=== PATIENT | female | born 1990 | race American Indian/Alaskan Native ===

== ENCOUNTER 2017-06-06 20:23 | Emergency (ER) | payer BC ==
[2017-06-06 21:51] LABS: Basophils % (Auto) 0.7 % (0.0-1.8); Eosinophils % (Auto) 0.3 % (0.0-4.3); Hematocrit 38.9 % (30.3-42.9); Hemoglobin 12.6 gm/dl (10.1-14.3); Mean Corpuscular HGB Conc 33 % (30-34); Mean Corpuscular Volume 80 fl (79-97); Platelet Count 355 K/mm3 (140-440); Red Blood Count 4.88 M/mm3 (3.65-5.03); Red Cell Distribution Width 16.1 % (13.2-15.2); White Blood Count 11.5 K/mm3 (4.5-11.0)
[2017-06-06 22:06] LABS: Alanine Aminotransferase 14 units/L (7-56); Albumin 4.3 g/dL (3.9-5); Albumin/Globulin Ratio 1.4 %; Alkaline Phosphatase 96 units/L (35-129); Anion Gap 19 mmol/L; BUN/Creatinine Ratio 12; Blood Urea Nitrogen 11 mg/dL (7-17); Calcium 9.2 mg/dL (8.4-10.2); Carbon Dioxide 21 mmol/L (22-30); Chloride 102.6 mmol/L (98-107); Glucose 106 mg/dL (65-100); Lipase 20 units/L (13-60); Potassium 3.8 mmol/L (3.6-5.0); Sodium 139 mmol/L (137-145); Total Protein 7.3 g/dL (6.3-8.2)
[2017-06-06 22:23] LABS: Mean Corpuscular Hemoglobin 26 pg (28-32)
[2017-06-06 23:57] LABS: Bilirubin,Urine NEG (Negative); Blood,Urine MOD (Negative); Ketones,Urine TR mg/dL (Negative); Leukocyte Esterase,Urine TR (Negative); Mucus,Urine 2+ /HPF; Nitrite,Urine NEG (Negative); Protein,Urine <15 mg/dL mg/dL (Negative); Urobilinogen,Urine < 2.0 mg/dL (<2.0)
[2017-06-07 04:36] VITALS: BP 136/66
[2017-06-07] MEDS ORDERED: ZOFRAN IV ONE (07:52)
[2017-06-07] MEDS ORDERED: MORPHINE IV ONE (07:52)
[2017-06-07] MEDS ORDERED: NACL 0.9% 1000 ML 1,000 ML IV ONE (07:52)
--- NOTE | 2017-06-07 08:02 | Emergency Department Report ---
HPI - General Chief Complaint: Abdominal Pain Time Seen by Provider: 06/07/17 07:38 - HPI HPI: This is a 27-year-old female presents to the emergency department from home, dropped off by her , with complaint of some mid to lower right abdominal pain, nausea and vomiting that started yesterday. The third time that she vomited she noticed some blood in the emesis. She vomited all the way up until reaching the hospital. She has not taken anything for her symptoms prior to presentation. No recent travel or sick contacts at home. She denies any past medical history. She follows up with a primary care physician in [place]. ED Past Medical Hx - Past Medical History Previous Medical History?: No Additional medical history: Vaginal delivery X 2 - Surgical History Past Surgical History?: Yes Additional Surgical History: Back Surgery - Lower Back - Social History Smoking Status: Never Smoker Substance Use Type: None - Medications Home Medications: Home Medications Medication Instructions Recorded Confirmed Last Taken Type Hyoscyamine Subl [Levsin Sl] 0.125 mg PO Q6H PRN #12 tablet 03/14/13 Unknown Rx Promethazine [Phenergan] 25 mg PO Q6H PRN #12 tablet 03/14/13 Unknown Rx Cyclobenzaprine [Flexeril] 10 mg PO TID PRN #14 tablet 01/04/16 Unknown Rx traMADol [Ultram] 50 mg PO Q6HR PRN #14 tablet 01/04/16 Unknown Rx Ciprofloxacin HCl [Ciprofloxacin 500 mg PO Q12HR #14 tab 06/07/17 Unknown Rx TAB] HYDROcodone/APAP 5-325 [[place] 1 each PO Q6HR PRN #12 tablet 06/07/17 Unknown Rx 5/325] Ondansetron [Zofran Odt] 4 mg PO Q8H PRN #10 tab.rapdis 06/07/17 Unknown Rx ED Review of Systems ROS: Stated complaint: BACK PAIN,VOMITING WITH BLOOD Other details as noted in HPI Comment: All other systems reviewed and negative Constitutional: denies: chills, fever Eyes: denies: eye pain, eye discharge, vision change ENT: denies: ear pain, throat pain Respiratory: denies: cough, shortness of breath, wheezing Cardiovascular: denies: chest pain, palpitations Gastrointestinal: abdominal pain, nausea, vomiting Genitourinary: denies: urgency, dysuria, discharge Musculoskeletal: denies: back pain, joint swelling, arthralgia Skin: denies: rash, lesions Neurological: denies: headache, weakness, paresthesias Physical Exam - Physical Exam Vital Signs: Vital Signs 06/06/17 06/06/17 06/07/17 20:44 21:22 01:05 Temperature 98.3 F 98.3 F 98.1 F Pulse Rate 76 76 68 Respiratory 18 17 18 Rate Blood Pressure 129/82 129/82 114/74 O2 Sat by Pulse 99 99 100 Oximetry 06/07/17 04:35 Temperature 98.4 F Pulse Rate 75 Respiratory 18 Rate Blood Pressure 136/66 O2 Sat by Pulse Oximetry Physical Exam: GENERAL: The patient is well-developed well-nourished. HENT: Normocephalic. Atraumatic. Patient has moist mucous membranes. EYES: Extraocular motions are intact. Pupils equal reactive to light bilaterally. NECK: Supple. Trachea is midline. CHEST/LUNGS: Clear to auscultation. There is no respiratory distress noted. HEART/CARDIOVASCULAR: Regular. There is no tachycardia. There is no gallop rub or murmur. ABDOMEN: Abdomen is soft. There is some right-sided tenderness to palpation of the abdomen. No guarding or rebound tenderness. No peritoneal signs. Patient has normal bowel sounds. There is no abdominal distention. SKIN: Skin is warm and dry. NEURO: The patient is awake, alert, and oriented. The patient is cooperative. The patient has no focal neurologic deficits. The patient has normal speech. MUSCULOSKELETAL: There is no tenderness or deformity. There is no evidence of acute injury. ED Course Vital Signs 06/06/17 06/06/17 06/07/17 20:44 21:22 01:05 Temperature 98.3 F 98.3 F 98.1 F Pulse Rate 76 76 68 Respiratory 18 17 18 Rate Blood Pressure 129/82 129/82 114/74 O2 Sat by Pulse 99 99 100 Oximetry 06/07/17 04:35 Temperature 98.4 F Pulse Rate 75 Respiratory 18 Rate Blood Pressure 136/66 O2 Sat by Pulse Oximetry - Consultations Consultation #1: I discussed the case with a urologist, Dr. Bradley, who is aware of the 8.[address] reading of obstructive uropathy. Based on this, the labs and vitals, and the patient's physical examination, he did not feel that the patient requires admission or any immediate surgical intervention at this time. He recommends antibiotics, pain medication and is willing to see the patient in the office in the next few days. 06/07/17 11:38 ED Medical Decision Making - Lab Data Result diagrams: 06/06/17 21:32 06/06/17 21:32 - Radiology Data Radiology results: report reviewed, image reviewed interpreted by me: X-ray of the abdomen shows some nonspecific nonobstructive bowel gas. CT of the abdomen and pelvis with IV contrast. History: Abdominal pain. Findings: The liver, spleen, pancreas, and gallbladder are normal. The left kidney is normal except for a 1 cm cyst in the midpole. There is an 8.7 mm in diameter stone at the right UV junction with severe right hydroureter and right hydronephrosis. A second smaller stone is seen several centimeters proximal to the large renal stone measuring 3 mm in diameter. There appear to be multiple additional stones in the collecting system of the right kidney partially obscured by intravenous contrast. There are no additional significant findings are seen within the pelvis. Impression: 2 stones are seen in the distal right ureter, the largest of which measures 8.7 mm in diameter with a smaller stone just proximal to this. There is severe obstructive uropathy. Multiple additional intrarenal stones on the right are partially obscured by intravenous contrast. 2. Small left renal cyst. Transcribed By: MRP Dictated By: PEDRO CHANDRA MD Electronically Authenticated By: PEDRO CHANDRA MD Signed Date/Time: 06/07/17 1053 - Medical Decision Making 27-year-old female presents with some right-sided abdominal discomfort and some nausea and vomiting. She has not had any vomiting since being in the emergency department and the nausea was treated with some Zofran. She was given some pain medication with some relief of her discomfort. Vital signs stable including being afebrile. Labs were mostly unremarkable. Patient is not . A CT of the abdomen and pelvis was done that shows a 8.7 mm stone in the distal right ureter with some right-sided obstructive uropathy. Urology was contacted and feels that the patient is safe for discharge home to follow up with them in their office and recommends antibiotics and pain control medication. The patient was given her lab and imaging results, the discussion with the urologist and the plan for discharge home with prescriptions and a strainer for her urine. She understands that she will need to return to the emergency department if she develops any fever, has increased abdominal pain, increased vomiting or with any acute distress. - Differential Diagnosis diverticulitis, nephrolithiasis, hydronephrosis, , fibroids, appen Critical Care Time: No Critical care attestation.: If time is entered above; I have spent that time in minutes in the direct care of this critically ill patient, excluding procedure time. ED Disposition Clinical Impression: Nephrolithiasis, Obstructive uropathy Abdominal pain Qualifiers: Abdominal location: unspecified location Qualified Code(s): R10.9 - Unspecified abdominal pain Nausea & vomiting Qualifiers: Vomiting type: unspecified Vomiting Intractability: non-intractable Qualified Code(s): R11.2 - Nausea with vomiting, unspecified Disposition: TO HOME OR SELFCARE Is pt being admited?: No Condition: Stable Instructions: Kidney Stones (ED), How to Strain Your Urine (ED), Abdominal Pain (ED) Additional Instructions: I have given him a referral for a local urologist, Dr. Bradley, to follow up regarding your kidney stones. You can see any urologist you would like or that takes her insurance. Strain your urine to see if you passed the stones. Return to the emergency department with any inability to urinate, increased abdominal pain, increased vomiting, development of fever, or any acute distress. You have been prescribed a medication that is sedating and therefore should not be taken prior to driving, working, and responsible for children and in no way should be mixed with alcohol of any quantity. Prescriptions: Ciprofloxacin HCl [Ciprofloxacin TAB] 500 mg PO Q12HR #14 tab HYDROcodone/APAP 5-325 [[place] 5/325] 1 each PO Q6HR PRN #12 tablet PRN Reason: Pain Ondansetron [Zofran Odt] 4 mg PO Q8H PRN #10 tab.rapdis PRN Reason: Nausea Referrals: LUCAS BRADLEY MD [Staff Physician] - [facility] Forms: Work/School Release Form(ED) Time of Disposition: 11:32
--- NOTE | 2017-06-07 09:41 | XRay Report ---
ABDOMEN TWO VIEWS: 06/07/17 07:52:00 CLINICAL: Abdominal pain. COMPARISON:05/17/15 FINDINGS: Supine upright views demonstrate a normal bowel gas pattern. Minimal distended bowel and no air-fluid levels. An oval smooth 1 cm+ right pelvic calcification is suspicious for a distal ureteral calculus. It was more proximal at the level of L4 on the previous exam. No pneumoperitoneum. IMPRESSION: Possible large right distal ureteral calculus. The abdomen is otherwise negative. Recommend CT abdomen and pelvis with stone protocol if clinically indicated.
[2017-06-07] MEDS ORDERED: MORPHINE ONE (10:10)
[2017-06-07] MEDS ORDERED: ZOFRAN ONE (10:11)
--- NOTE | 2017-06-07 11:09 | Cat Scan Report ---
CT of the abdomen and pelvis with IV contrast. History: Abdominal pain. Findings: The liver, spleen, pancreas, and gallbladder are normal. The left kidney is normal except for a 1 cm cyst in the midpole. There is an 8.7 mm in diameter stone at the right UV junction with severe right hydroureter and right hydronephrosis. A second smaller stone is seen several centimeters proximal to the large renal stone measuring 3 mm in diameter. There appear to be multiple additional stones in the collecting system of the right kidney partially obscured by intravenous contrast. There are no additional significant findings are seen within the pelvis. Impression: 2 stones are seen in the distal right ureter, the largest of which measures 8.7 mm in diameter with a smaller stone just proximal to this. There is severe obstructive uropathy. Multiple additional intrarenal stones on the right are partially obscured by intravenous contrast. 2. Small left renal cyst.
== END 2017-06-07 12:00 | disposition home or self-care (01) ==
LOC: ED 20:23
DX: N13.9 Obstructive and reflux uropathy, unspecified (principal); N20.0 Calculus of kidney; R11.2 Nausea with vomiting, unspecified
CPT/HCPCS: 36415; 74020; 74177; 80053; 81001; 81025; 83690; 85025; 96361; 96374; 96375; 99284; J2270; J2405; J7030; Q9967

== ENCOUNTER 2017-06-16 14:07 | Day surgery (SDC) | payer BC ==
[~2017-06-16 14:07] MED LIST: ANCEF/STERILE WATER 2 GM/20 ML 2 GM/20 ML SYRINGE IV NR
[2017-06-16] MEDS ORDERED: NACL BACTERIOSTATIC INFILTRATI ONE (14:57)
--- NOTE | 2017-06-16 15:24 | Anesthesia Consultation ---
Anesthesia Consult and Med Hx Date of service: 06/16/17 - Airway Anesthetic Teeth Evaluation: Good ROM Head & Neck: Adequate Mental/Hyoid Distance: Adequate Mallampati Class: Class II Intubation Access Assessment: Good - Pulmonary Exam CTA: Yes - Cardiac Exam Cardiac Exam: No Murmur - Pre-Operative Health Status ASA Pre-Surgery Classification: ASA1 - Pulmonary Hx Smoking: No Hx Sleep Apnea: No (KERVIN PRE SCREEN NEGATIVE) - Cardiovascular System Hx Hypertension: No - Central Nervous System Hx Back Pain: Yes (FROM KIDNEY STONE) - Other Systems Hx Cancer: No
--- NOTE | 2017-06-16 15:25 | Anesthesia Day of Surgery ---
Anesthesia Day of Surgery - Day of Surgery Patient Examined: Yes Patient H&P Reviewed: Yes Patient is NPO: No (ate at 11AM)
[2017-06-16] MEDS ORDERED: PEPCID PO NR (16:00)
[2017-06-16] MEDS ORDERED: LACTATED RINGERS 1,000 ML IV SCH (16:00)
[2017-06-16] MEDS ORDERED: VERSED IV NR (16:00)
[2017-06-16] MEDS ORDERED: ANCEF/STERILE WATER 2 GM/20 ML 2 GM/20 ML SYRINGE IV ONE (16:04)
[2017-06-16] MEDS ORDERED: ZOFRAN ONE (17:06)
[2017-06-16] MEDS ORDERED: DIPRIVAN 10 MG/ML IV ONE (17:06)
[2017-06-16] MEDS ORDERED: SUBLIMAZE ONE (17:06)
[2017-06-16] MEDS ORDERED: DECADRON ONE (17:06)
[2017-06-16] MEDS ORDERED: XYLOCAINE MPF 2% ONE (17:06)
--- NOTE | 2017-06-16 17:19 | Post Operative Note ---
Pre-op diagnosis: huge r distal stone Post-op diagnosis: same Findings: as above Procedure: cysto rpg stent ureteroscopy laser stent Anesthesia: GETA Surgeon: MATI ADAMS Estimated blood loss: none Pathology: none Condition: stable Disposition: PACU
--- NOTE | 2017-06-16 17:21 | Discharge Summary ---
Short Stay Discharge Plan Activity: other (no straining ) Weight Bearing Status: Full Weight Bearing Diet: low fat Special Instructions: other (inc fluids ) Durable Medical Equipment Needed Upon Discharge: other (j stent ) Follow up with: PRIMARY CAREMD [Primary Care Provider] - 7 Days MATI ADAMS MD [Staff Physician] - 10 Days
[2017-06-16] MEDS ORDERED: OMNIPAQUE 300 MG/50 ML (CATH LAB) IV ONE (18:29)
[2017-06-16] MEDS ORDERED: WATER FOR IRRIG STERILE IR ONE ×2 (18:30)
[2017-06-16] MEDS ORDERED: LASIX ONE (18:51)
--- NOTE | 2017-06-16 19:29 | Operative Report ---
PREOPERATIVE DIAGNOSIS: Huge right distal stone. POSTOPERATIVE DIAGNOSES: Huge right distal stone with severe right hydronephrosis. PROCEDURE: Cystoscopy, right retrograde, right ureteral balloon dilatation, ureteroscopy with laser of stone, extraction of fragments, double-J stent. SURGEON: Steffen Vázquez MD ANESTHESIA: General. FINDINGS: This is a woman who had pain has a huge distal stone. She knows that this will be a staged procedure because the stone was so big in the distal ureter. DESCRIPTION OF PROCEDURE: The patient was brought to the operating room and placed on the operating table. Following induction of anesthesia, placed in lithotomy position, prepped and draped in usual sterile fashion. Cystourethroscopy showed some blood at the right orifice. Retrograde showed a 1 cm stone in the distal ureter. A wire eventually with some difficulty coiled in the kidney. There was no evidence of any pyonephrosis. There was no purulent material. It was all clear. Balloon dilatation was carried out and an ureteroscopy showed this huge stone. We broke it up. There was lots of edema around the ureter we broken up into lots of pieces and 2 pieces were given to the family. At this point, there was still some significant fragment adherent to the wall. We left a 7-Slovenian double J. We will come back in staged procedures to get the rest in approximately 3 weeks. The patient tolerated the procedure well and brought to recovery room in stable condition. JOB# [id number] MATTHIEU/KOBY
[2017-06-16] MEDS ORDERED: DILAUDID IV PRN ×2 (19:30→19:33)
[2017-06-16 20:10] VITALS: BP 110/59
--- NOTE | 2017-06-17 07:34 | Fluoroscopy Report ---
FLUOROSCOPY RETROGRADE UROGRAPHY HISTORY: RIGHT URETERAL STONE. FINDINGS: Fluoroscopy was provided by radiology during retrograde urography by Dr. Vázquez of urology. 6 fluoroscopic images were captured. The images demonstrate a filling defect in the distal right ureter consistent with an obstructing stone. Subsequent images demonstrate balloon dilatation of the right ureter and placement of a right ureteral stent which adequately drains the collecting system on the final image. Please correlate with the procedural report by Dr. Vázquez. IMPRESSION: Right ureteral stone. Right ureteral stent placement by urology.
== END 2017-06-16 14:08 | disposition home or self-care (01) ==
LOC: OR 14:07
PROVIDERS: ATTEND Urology
DX: N13.2 Hydronephrosis with renal and ureteral calculous obstruction (principal)
CPT/HCPCS: 52344; 52356; 74420; 81025; A4217; C1726; C1758; C1769; C2617; J0690; J1100; J1170; J1940; J2250; J2405; J2704; J3010; J7120; Q9967

== ENCOUNTER 2017-07-28 15:07 | Day surgery (SDC) | payer BC ==
[2017-07-28] MEDS ORDERED: NACL BACTERIOSTATIC INFILTRATI ONE (15:48)
[2017-07-28] MEDS ORDERED: LACTATED RINGERS 1,000 ML IV SCH (16:07)
[2017-07-28] MEDS ORDERED: PEPCID IV NR (16:07)
[2017-07-28] MEDS ORDERED: VERSED IV NR (16:07)
--- NOTE | 2017-07-28 16:08 | Anesthesia Consultation ---
Anesthesia Consult and Med Hx Date of service: 07/28/17 - Airway Anesthetic Teeth Evaluation: Good ROM Head & Neck: Adequate Mental/Hyoid Distance: Adequate Mallampati Class: Class II Intubation Access Assessment: Good - Pulmonary Exam CTA: Yes - Cardiac Exam Cardiac Exam: No Murmur - Pre-Operative Health Status ASA Pre-Surgery Classification: ASA2 Proposed Anesthetic Plan: General - Pulmonary Hx Smoking: No Hx Sleep Apnea: No (KERVIN PRE SCREEN NEGATIVE) - Cardiovascular System Hx Hypertension: No - Central Nervous System Hx Back Pain: Yes (FROM KIDNEY STONE) - Other Systems Hx Cancer: No
--- NOTE | 2017-07-28 16:09 | Anesthesia Day of Surgery ---
Anesthesia Day of Surgery - Day of Surgery Patient Examined: Yes Patient H&P Reviewed: Yes Patient is NPO: Yes
[2017-07-28] MEDS ORDERED: SUBLIMAZE ONE (16:55)
[2017-07-28] MEDS ORDERED: DIPRIVAN 10 MG/ML IV ONE (16:56)
[2017-07-28] MEDS ORDERED: ANCEF/STERILE WATER 2 GM/20 ML 2 GM/20 ML SYRINGE IV NR (17:00)
[2017-07-28] MEDS ORDERED: OMNIPAQUE 300 MG/50 ML (CATH LAB) IV ONE (17:37)
[2017-07-28] MEDS ORDERED: WATER FOR IRRIG STERILE IR ONE ×2 (17:38)
[2017-07-28] MEDS ORDERED: DILAUDID IM ONE (18:00)
[2017-07-28] MEDS ORDERED: XYLOCAINE MPF 2% ONE (18:18)
--- NOTE | 2017-07-28 18:29 | Post Operative Note ---
Date of procedure: 07/28/17 Pre-op diagnosis: huge r ureteral stone Post-op diagnosis: same Findings: as above Procedure: cysto l;aser urteteroscopy stent Anesthesia: GETA Surgeon: MATI ADAMS Estimated blood loss: minimal Pathology: list (stones) Specimen disposition: given to patient/family Condition: stable Disposition: PACU
--- NOTE | 2017-07-28 18:30 | Discharge Summary ---
Short Stay Discharge Plan Activity: other (no straining ) Weight Bearing Status: Full Weight Bearing Diet: regular Special Instructions: other (inc fluids ) Durable Medical Equipment Needed Upon Discharge: other (j stent ) Follow up with: PEDRO LINO MD [Primary Care Provider] - 7 Days MATI ADAMS MD [Staff Physician] - 7 Days
[2017-07-28] MEDS ORDERED: DECADRON ONE (18:32)
[2017-07-28] MEDS ORDERED: ZOFRAN ONE (18:32)
[2017-07-28] MEDS ORDERED: DILAUDID ONE (18:48)
--- NOTE | 2017-07-28 18:49 | Operative Report ---
PREOPERATIVE DIAGNOSIS: Huge right distal ureteral stone about 1.2 cm. POSTOPERATIVE DIAGNOSES: Huge right distal ureteral stone about 1.2 cm. PROCEDURE: Stage ureteroscopy. SURGEON: Steffen Vázquez MD ANESTHESIA: General. FINDINGS: This is a woman who presented with a huge stone. She was in severe pain. We took about half the stone at the first session, now she presents for followup. DESCRIPTION OF PROCEDURE: The patient brought to the operating room and placed on the operating table. Following induction of anesthesia, placed in lithotomy position, prepped and draped in the usual sterile fashion. The stent was removed under fluoroscopic guidance, after we had a wire up there. It was a little gritty to get by the back, pass the stone. With the wire under fluoroscopy, it came out pretty good and pretty easily. At this point, ureteroscopy showed this huge stone. It was with a laser at 260 fiber, we broke up into about 30 pieces. Many of the pieces were extracted. Many of them was left in the bladder, the small pieces. The patient tolerated the procedure well. A double-J coiled in the kidney and bladder. We were able to get above the stone and continued lasering and removed all the stones that we saw. The patient tolerated the procedure well. She will be given the fragments, brought to recovery in stable condition with a 7-Albanian double-J to be removed in about 2 weeks. JOB# [id number] MATTHIEU/KOBY
[2017-07-28 20:51] VITALS: BP 122/69
--- NOTE | 2017-07-29 07:43 | Fluoroscopy Report ---
FLUORO RETROGRADE UROGRAPHY INDICATION: Right ureteral stone. COMPARISON: 06/16/2017. FINDINGS: 8 fluoroscopic images submitted. Procedure performed by Dr. Vázquez. Initial fence installer radiographs, 6:08 PM, 07/28/2017 demonstrate a right ureteral stent and approximately 1 cm right distal ureteral calculus. Right stone extraction and retrograde pyelogram performed with right ureteroscopy and right ureteral stent exchange. Mild right hydronephrosis again not excluded with small amount of contrast visible in the pelvis/urinary bladder. CONCLUSION: Intraoperative fluoroscopic assistance provided for right ureteral stone extraction, RPG, stent exchange and ureteroscopy, as described. Thank you for the opportunity to participate in this patient's care.
== END 2017-07-28 15:08 | disposition home or self-care (01) ==
LOC: OR 15:07
PROVIDERS: ATTEND Urology
DX: N20.1 Calculus of ureter (principal)
CPT/HCPCS: 52356; 74420; 81025; A4217; C1758; C1769; C2617; J0690; J1100; J1170; J2250; J2405; J2704; J3010; J7120; Q9967

== ENCOUNTER 2017-11-17 08:22 | Day surgery (SDC) | payer BC ==
[2017-11-17] MEDS ORDERED: XYLOCAINE MPF 2% ONE (09:18)
[2017-11-17] MEDS ORDERED: SUBLIMAZE ONE (09:19)
[2017-11-17] MEDS ORDERED: DIPRIVAN 10 MG/ML IV ONE (09:20)
[2017-11-17] MEDS ORDERED: DILAUDID IV PRN (10:00)
[2017-11-17] MEDS ORDERED: NACL BACTERIOSTATIC INFILTRATI ONE (10:00)
[2017-11-17] MEDS ORDERED: NACL 0.9% 1000 ML 1,000 ML IV SCH (10:00)
[2017-11-17] MEDS ORDERED: TORADOL IV PRN (10:00)
--- NOTE | 2017-11-17 10:02 | Anesthesia Day of Surgery ---
Anesthesia Day of Surgery - Day of Surgery Patient Examined: Yes Patient H&P Reviewed: Yes Patient is NPO: Yes Beta Blockers: No Cardiac Clearance: No Pulmonary Clearance: No
--- NOTE | 2017-11-17 10:02 | Anesthesia Consultation ---
Anesthesia Consult and Med Hx Date of service: 11/24/17 - Airway Anesthetic Teeth Evaluation: Good ROM Head & Neck: Adequate Mental/Hyoid Distance: Adequate Mallampati Class: Class II Intubation Access Assessment: Probably Good - Pulmonary Exam CTA: Yes - Cardiac Exam Cardiac Exam: RRR - Pre-Operative Health Status ASA Pre-Surgery Classification: ASA2 Proposed Anesthetic Plan: General - Pre-Anesthesia Comment Pre-Anesthesia Comments: RENAL CALCULI - Pulmonary Hx Smoking: No Hx Sleep Apnea: No (KERVIN PRE SCREEN NEGATIVE) - Cardiovascular System Hx Hypertension: No - Central Nervous System Hx Back Pain: Yes (FROM KIDNEY STONE) - Other Systems Hx Cancer: No
--- NOTE | 2017-11-17 10:05 | Anesthesia Day of Surgery ---
Anesthesia Day of Surgery - Day of Surgery Patient Examined: Yes Patient H&P Reviewed: Yes Patient is NPO: Yes Beta Blockers: No Cardiac Clearance: No Pulmonary Clearance: No
[2017-11-17] MEDS ORDERED: ANCEF/STERILE WATER 2 GM/20 ML IV NR (10:30)
[2017-11-17] MEDS ORDERED: WATER FOR IRRIG STERILE IR ONE (11:30)
[2017-11-17] MEDS ORDERED: ZOFRAN ONE (11:43)
--- NOTE | 2017-11-17 11:47 | Short Stay Summary ---
Short Stay Documentation Date of service: 11/17/17 Narrative H&P: 27 yr old female with rt kidney stone - History Past Medical History: other (kidney stones) Past Surgical History: Other (ureteroscopy in past) - Allergies and Medications Current Medications: Allergies No Known Allergies Allergy (Verified 06/14/17 15:38) Home Medications Medication Instructions Recorded Confirmed Last Taken Type Cholecalciferol (Vitamin D3) 1,000 unit PO DAILY 06/14/17 11/17/17 11/14/17 History [Vitamin D3] Active Medications Cefazolin Sodium (Ancef/Sterile Water 2 Gm/20 Ml) 2 gm IV PREOP NR Stop: 11/17/17 15:00 Hydromorphone HCl (Dilaudid) 0.5 mg IV Q10MIN PRN PRN Reason: Pain , Severe (7-10) Stop: 11/17/17 15:00 Sodium Chloride (Nacl 0.9% 1000 Ml) 1,000 mls @ 75 mls/hr IV DIRECT NAILA Last Admin: 11/17/17 10:20 Dose: 75 mls/hr Ketorolac Tromethamine (Toradol) 15 mg IV ONCE PRN PRN Reason: Pain, Mild (1-3) - Physical exam General appearance: no acute distress, well-nourished Integumentary: no rash, no growths Lungs: Clear to auscultation Breasts: deferred Heart: Regular rate, No murmurs Gastrointestinal: normal Female Genitourinary: normal Rectal Exam: deferred Extremities: no ischemia, No edema - Brief post op/procedure progress note Date of procedure: 11/17/17 Pre-op diagnosis: rt kidney stone Post-op diagnosis: same Procedure: cysto, rt ureteroscopy ,stent with external string Anesthesia: MIRIAMA Surgeon: LUCAS BUSCH Estimated blood loss: none Condition: stable - Hospital course Hospital course: cipro, norco, post op info on chart - Disposition Condition at discharge: Stable Disposition: DC-01 TO HOME OR SELFCARE Short Stay Discharge Plan Follow up with: ALEDIA EVANGELISTA DO [Primary Care Provider] - 7 Days
[2017-11-17] MEDS ORDERED: NORCO 5/325 PO PRN (12:12)
--- NOTE | 2017-11-17 12:20 | Operative Report ---
PREOPERATIVE DIAGNOSIS: Right renal stone. POSTOPERATIVE DIAGNOSES: Right renal stone, right hydronephrosis, passed stone. PROCEDURE: Cystoscopy, right retrograde pyelogram, right ureteroscopy, double-J stent placement (6-Solomon Islander 24 cm) with an external string. SURGEON: Pradeep Bradley MD ANESTHESIA: General. ESTIMATED BLOOD LOSS: Minimal. FLUIDS: Crystalloid. COMPLICATIONS: No complications. INDICATIONS: This patient is a 27-year-old female seen by Dr. Vázquez in the office. It was noted to be several stones in the right kidney. She also had a distal stone that was removed. She presents now for intervention. DESCRIPTION OF PROCEDURE: The patient was taken to the operative suite, placed in a supine position. Network Operations Project Manager film to find the stone was unremarkable. IV contrast was given. There was dilation of the collecting system. No obvious stone could be appreciated. I discussed with the patient, who was awake on the table and she agreed to proceed with ureteroscopy. She then underwent general anesthesia, placed in a dorsal lithotomy position, prepped and draped in the sterile fashion. This was all discussed with her and her preop and written information was given. The patient was taken to the operative suite, placed in a supine position. After adequate general anesthesia, placed in a dorsal lithotomy position, prepped and draped in a sterile fashion. Pancystourethroscopy was performed with 22-Solomon Islander Storz cystoscope. No bladder pathology. Right retrograde pyelogram was obtained with an 8-Solomon Islander [place] catheter and 8 mL of contrast. Dilation of the proximal ureter and calices could be appreciated. I could not see an obvious stone. Based on these findings, two 0.035 Glidewires were placed. Rigid ureteroscopy up to the renal pelvis was performed. There was some erythema in the proximal ureter. No obvious stone could be appreciated, suggesting it had passed. A 6-Solomon Islander 24 cm double-J stent with an external string was left indwelling. Bladder was drained. She was extubated and taken to recovery room. She will go home on [place] and Cipro and follow up in the office. JOB# [id number] LINUSC/NTS
[2017-11-17 16:28] VITALS: BP 101/64
--- NOTE | 2017-11-17 17:32 | Post Anesthesia Evaluation ---
- Post Anesthesia Evaluation Patient Participated: Yes Airway Patent: Yes Stable Respiratory Function: Yes Nausea/Vomiting: No Temp > 96.8F: Yes Pain Manageable: Yes Adequeate Hydration: Yes Anesthesia Complications: No
== END 2017-11-17 13:29 | disposition home or self-care (01) ==
LOC: OR 08:22
PROVIDERS: ATTEND Urology
DX: N13.2 Hydronephrosis with renal and ureteral calculous obstruction (principal)
CPT/HCPCS: 52332; 81025; A4217; C1758; C1769; C2617; J0690; J1885; J2405; J2704; J3010; J7030; Q9967

== ENCOUNTER 2019-03-28 09:36 | Emergency (ER) | payer BC ==
--- NOTE | 2019-03-28 09:55 | Emergency Department Report ---
HPI - General Chief Complaint: Abdominal Pain Time Seen by Provider: 03/28/19 09:51 - HPI HPI: 29 COMES TO ER WITH R FLANK PAIN. HX OF KIDNEY STONES. AMBULATORY. NO N/V. PAIN 02/17 ON ARRIVAL. SHE DENIES FEVER/CHILLS/DIARRHEA. OTC MEDS NOT HELPING DURING THE NIGHT SO SHE COMES TO ER. PAIN IS COLICKY ON RIGHT SIDE. ED Past Medical Hx - Past Medical History Previous Medical History?: Yes Hx Hypertension: No Hx Kidney Stones: Yes Hx HIV: No Additional medical history: Vaginal delivery X 2 - Surgical History Past Surgical History?: Yes Additional Surgical History: Back Surgery - Lower Back - Family History Family history: no significant - Social History Smoking Status: Never Smoker Substance Use Type: None - Medications Home Medications: Home Medications Medication Instructions Recorded Confirmed Last Taken Type Cholecalciferol (Vitamin D3) 1,000 unit PO DAILY 06/14/17 11/17/17 11/14/17 History [Vitamin D3] Ciprofloxacin HCl [Ciprofloxacin 500 mg PO Q12HR #20 tab 03/28/19 Unknown Rx TAB] Ondansetron [Zofran Odt] 4 mg PO Q8HR PRN #10 tab.rapdis 03/28/19 Unknown Rx Tamsulosin [Flomax] 0.4 mg PO QDAY #10 cap 03/28/19 Unknown Rx traMADol [Ultram] 50 mg PO Q6HR PRN #12 tablet 03/28/19 Unknown Rx ED Review of Systems ROS: Stated complaint: BODY ACHE/ABD PAIN Other details as noted in HPI Comment: All other systems reviewed and negative Physical Exam - Physical Exam Vital Signs: Vital Signs 03/28/19 09:40 Temperature 98.7 F Pulse Rate 110 H Respiratory 18 Rate Blood Pressure 109/55 Blood Pressure 109/55 [Right] O2 Sat by Pulse 95 Oximetry Physical Exam: ALERT AND ORIENTED S1S2 LUNGS CTA ABD SNT NO EDEMA NO JVD FULL ROM ALL EXTREMITIES ED Course Vital Signs 03/28/19 09:40 Temperature 98.7 F Pulse Rate 110 H Respiratory 18 Rate Blood Pressure 109/55 Blood Pressure 109/55 [Right] O2 Sat by Pulse 95 Oximetry ED Medical Decision Making - Lab Data Result diagrams: 03/28/19 10:23 03/28/19 10:23 - Radiology Data Radiology results: report reviewed, image reviewed - Medical Decision Making Vital Signs 03/28/19 03/28/19 09:40 10:59 Temperature 98.7 F Pulse Rate 110 H Respiratory 18 18 Rate Blood Pressure 109/55 Blood Pressure 109/55 [Right] O2 Sat by Pulse 95 Oximetry Labs 03/28/19 03/28/19 03/28/19 10:10 10:23 10:23 WBC 5.6 RBC 5.05 H Hgb 11.8 Hct 36.7 MCV 73 L MCH 24 L MCHC 32 RDW 18.2 H Plt Count 329 Sodium 137 Potassium 3.8 Chloride 103.2 Carbon Dioxide 22 Anion Gap 16 BUN 12 Creatinine 0.8 Estimated GFR > 60 BUN/Creatinine Ratio 15 Glucose 98 Calcium 8.8 Total Bilirubin 0.20 AST 19 ALT 19 Alkaline Phosphatase 84 Total Protein 7.0 Albumin 4.0 Albumin/Globulin Ratio 1.3 Lipase 20 Urine Color Yellow Urine Turbidity Cloudy Urine pH 6.0 Ur Specific [place] 1.019 Urine Protein 100 mg/dl Urine Glucose (UA) Neg Urine Ketones 20 Urine Blood Lg Urine Nitrite Pos Ur Reducing Substances Not Reportable Urine Bilirubin Neg Urine Ictotest Not Reportable Urine Urobilinogen 2.0 Ur Leukocyte Esterase Sm Urine WBC (Auto) 34.0 H Urine RBC (Auto) > 182.0 U Epithel Cells (Auto) 3.0 Urine Bacteria (Auto) 3+ Urine Mucus 2+ Urine HCG, Qual Negative NS/PAIN MEDICATIONS/ZOFRAN AND ROCEPHIN IN ER UA NOTED LABS NOTED CT NOTED DISCUSSED WITH DR SILVA AND THEN UROLOGY- DR ADAMS WITH [facility] PER [facility] PT CAN BE DC HOME AND FOLLOWED IN THE OFFICE PT UPDATED ON PLAN OF CARE ON DC SHE IS PAIN FREE, NO VOMITING, AMBULATORY HR 90, RR 18, BP 120/82 PER PROVIDER SHE IS VOIDINIG WITHOUT DIFFICULTY Critical care attestation.: If time is entered above; I have spent that time in minutes in the direct care of this critically ill patient, excluding procedure time. ED Disposition Clinical Impression: Kidney stone, UTI (urinary tract infection), Hydronephrosis Disposition: DC-01 TO HOME OR SELFCARE Is pt being admited?: No Does the pt Need Aspirin: No Condition: Stable Instructions: Kidney Stones (ED) Additional Instructions: MEDS ORDERED HYDRATE WELL WITH WATER STRAIN URINE FOLLOW UP WITH URO MAY CALL TODAY AND MAKE APPNT REFERRAL BELOW Prescriptions: Ciprofloxacin HCl [Ciprofloxacin TAB] 500 mg PO Q12HR #20 tab Tamsulosin [Flomax] 0.4 mg PO QDAY #10 cap traMADol [Ultram] 50 mg PO Q6HR PRN #12 tablet PRN Reason: Pain Ondansetron [Zofran Odt] 4 mg PO Q8HR PRN #10 tab.rapdis PRN Reason: Vomiting Referrals: PRIMARY CARE, [Primary Care Provider] - 3-5 Days LUIS ANTONIO GREGORY MD [Staff Physician] - 3-5 Days LUCAS BUSCH MD [Staff Physician] - 3-5 Days JENIFFER BENJAMIN MD [Staff Physician] - 3-5 Days Forms: Work/School Release Form(ED) Time of Disposition: 13:45
[2019-03-28] MEDS ORDERED: IBUPROFEN PO ONE (09:56)
[2019-03-28 10:24] LABS: HCG Qualitative,Urine Negative (Negative)
[2019-03-28 10:31] LABS: Bacteria,Urine 3+ /HPF (Negative); Bilirubin,Urine NEG (Negative); Blood,Urine LG (Negative); Mucus,Urine 2+ /HPF
[2019-03-28 10:34] LABS: Color,Urine Yellow (Yellow); RBC,Urine > 182.0 /HPF (0.0-6.0)
[2019-03-28] MEDS ORDERED: ROCEPHIN/NS 1 GM/50 ML 1 GM/50 ML BAG IV ONE (10:37)
[2019-03-28] MEDS ORDERED: TORADOL IV ONE (10:37)
[2019-03-28] MEDS ORDERED: NACL 0.9% 1000 ML 1,000 ML IV ONE ×2 (10:37→12:28)
[2019-03-28 10:51] LABS: Hematocrit 36.7 % (30.3-42.9); Hemoglobin 11.8 gm/dl (10.1-14.3); Mean Corpuscular HGB Conc 32 % (30-34); Mean Corpuscular Volume 73 fl (79-97); Platelet Count 329 K/mm3 (140-440); Red Blood Count 5.05 M/mm3 (3.65-5.03); Red Cell Distribution Width 18.2 % (13.2-15.2)
[2019-03-28 11:02] LABS: Alanine Aminotransferase 19 units/L (7-56); BUN/Creatinine Ratio 15; Blood Urea Nitrogen 12 mg/dL (7-17); Calcium 8.8 mg/dL (8.4-10.2); Hemolysis Index 34
--- NOTE | 2019-03-28 12:27 | Cat Scan Report ---
CT ABDOMEN AND PELVIS WITHOUT CONTRAST HISTORY: Right flank pain for 12 hours COMPARISON: 06/07/2017 CT abdomen pelvis with contrast TECHNIQUE: Axial CT images were obtained through the abdomen and pelvis without IV contrast. Sagittal and coronal reformatted images. All CT scans at this location are performed using CT dose reduction for ALARA by means of automated exposure control. FINDINGS: CT ABDOMEN: Lung Bases: Clear. Liver: No significant abnormality. Biliary: No significant abnormality. Spleen: No significant abnormality. Unenlarged. Pancreas: No significant abnormality. Adrenals: No significant abnormality. Kidneys: A 10 x 11 x 11 mm ureteral stone is identified in the proximal right ureter. There is modera te right hydronephrosis. No left ureteral stones. Multiple bilateral tiny renal calyceal stones are i dentified, left greater than right. Please note that a large calculus in the distal right ureter has been removed since 2017. Lymphatics: No lymphadenopathy. Vasculature: No significant abnormality. Bowel/Peritoneum: No significant abnormality. No free air. No free fluid. Normal appendix. CT PELVIS: : No significant abnormality. Osseous Structures: No significant abnormality. Additional Findings: None IMPRESSION: 10 x 11 x 11 mm proximal right ureteral stone, obstructing. Bilateral renal calyceal stones, left greater than right. Signer Name: Jakob Cade Jr, MD Signed: 03/28/2019 12:22 PM Workstation Name: [id number]
[2019-03-28 14:02] VITALS: BP 111/72
== END 2019-03-28 14:17 | disposition home or self-care (01) ==
LOC: ED 09:36
DX: N13.2 Hydronephrosis with renal and ureteral calculous obstruction (principal); N39.0 Urinary tract infection, site not specified; Z87.442 Personal history of urinary calculi; Z98.890 Other specified postprocedural states; Z79.899 Other long term (current) drug therapy
CPT/HCPCS: 36415; 74176; 80053; 81001; 81025; 83690; 85027; 87086; 96365; 96375; 99284; J0696; J1885; J7030

== ENCOUNTER 2019-04-05 07:58 | Day surgery (SDC) | payer BC ==
[2019-04-05] MEDS ORDERED: fentaNYL 100 MCG/2 ML INJ IV NR (08:47)
--- NOTE | 2019-04-05 08:48 | Anesthesia Consultation ---
Anesthesia Consult and Med Hx Date of service: 04/05/19 - Airway Anesthetic Teeth Evaluation: Good ROM Head & Neck: Adequate Mental/Hyoid Distance: Adequate Mallampati Class: Class II Intubation Access Assessment: Good - Pulmonary Exam CTA: Yes - Cardiac Exam Cardiac Exam: RRR - Pre-Operative Health Status ASA Pre-Surgery Classification: ASA2 Proposed Anesthetic Plan: General (hydronephrosis) - Pulmonary Hx Smoking: No Hx Sleep Apnea: No (KERVIN PRE SCREEN LOW RISK) - Cardiovascular System Hx Hypertension: No - Central Nervous System Hx Back Pain: Yes (FROM KIDNEY STONE) - Other Systems Hx Cancer: No
[2019-04-05] MEDS ORDERED: ONDANSETRON 4 MG/2 ML INJ IV PRN (08:49)
[2019-04-05] MEDS ORDERED: HYDROmorphone 1 MG/1 ML INJ IV PRN (08:49)
--- NOTE | 2019-04-05 08:49 | Anesthesia Day of Surgery ---
Anesthesia Day of Surgery - Day of Surgery Patient Examined: Yes Patient H&P Reviewed: Yes Patient is NPO: Yes
[2019-04-05] MEDS ORDERED: LACTATED RINGERS 1,000 ML IV SCH (09:00)
[2019-04-05] MEDS ORDERED: SODIUM CHLORIDE 0.9% 1000 ML 1,000 ML ONE (09:06)
[2019-04-05] MEDS ORDERED: PROPOFOL 200 MG/20 ML VIAL IV ONE ×2 (10:34→11:00)
[2019-04-05] MEDS ORDERED: LIDOCAINE MPF (2%) 20 MG/1 ML VIAL 5 ML ONE (10:35)
[2019-04-05] MEDS ORDERED: ROCURONIUM 50 MG/5 ML INJ IV ONE (10:35)
[2019-04-05] MEDS ORDERED: SUCCINYLCHOLINE CHLORIDE 200 MG/10 ML INJ MDV ONE (10:35)
[2019-04-05] MEDS ORDERED: ONDANSETRON 4 MG/2 ML INJ ONE (11:31)
--- NOTE | 2019-04-05 11:37 | Short Stay Summary ---
Short Stay Documentation Date of service: 04/05/19 - History H&P: obtained from office - Allergies and Medications Current Medications: Allergies No Known Allergies Allergy (Verified 03/28/19 09:37) Home Medications Medication Instructions Recorded Confirmed Last Taken Type Ciprofloxacin HCl [Ciprofloxacin 500 mg PO Q12HR #20 tab 03/28/19 04/04/19 Unknown Rx TAB] Ondansetron [Zofran Odt] 4 mg PO Q8HR PRN #10 tab.rapdis 03/28/19 04/04/19 Unknown Rx Tamsulosin [Flomax] 0.4 mg PO QDAY #10 cap 03/28/19 04/04/19 Unknown Rx traMADol [Ultram] 50 mg PO Q6HR PRN #12 tablet 03/28/19 04/04/19 Unknown Rx Active Medications Fentanyl (Sublimaze) 100 mcg IV ONCE NR Stop: 04/05/19 13:00 Hydromorphone HCl (Dilaudid) 0.5 mg IV Q10MIN PRN PRN Reason: Pain , Severe (7-10) Stop: 04/05/19 20:00 Lactated Ringer's (Lactated Ringers) 1,000 mls @ 75 mls/hr IV DIRECT NAILA Ondansetron HCl (Zofran) 4 mg IV ONCE PRN PRN Reason: Nausea And Vomiting - Brief post op/procedure progress note Date of procedure: 04/05/19 Pre-op diagnosis: rt renal stone Post-op diagnosis: other (UTI) Procedure: CYSTO, RPG, RT STENT ----[id number] WITH SHORT INTERNAL STRING Anesthesia: GETA Surgeon: LUCAS BUSCH Condition: stable - Hospital course Hospital course: DOROTHY & GUY ON CHART - Disposition Condition at discharge: Stable Disposition: DC-01 TO HOME OR SELFCARE Short Stay Discharge Plan Follow up with: PRIMARY CARE, [Primary Care Provider] - 7 Days
[2019-04-05] MEDS ORDERED: ALBUTEROL 8.5 GM INHALATION IH ONE (11:41)
[2019-04-05] MEDS ORDERED: METOCLOPRAMIDE 10 MG/2 ML INJ IV PRN (12:00)
--- NOTE | 2019-04-05 12:04 | Progress Note ---
Subjective Date of service: 04/05/19 ( ) Interval history: Prior to extubation , patient had a bout on vomiting, associated with mild desaturation to the mid 80s, patient was suctioned , given albuterol inhaler puffs via ET tube and her pulse returned to 100 % , patient was subsequently extubated awake . In Pacu patients vital signs were stable and will be monitored closely
[2019-04-05 12:49] VITALS: BP 122/47
[2019-04-05] MEDS ORDERED: KETOROLAC 30 MG/1 ML INJ IV ONE (13:00)
--- NOTE | 2019-04-05 14:02 | Operative Report ---
PREOPERATIVE DIAGNOSIS: Right ureteropelvic junction stone, 1 cm. POSTOPERATIVE DIAGNOSES: Right ureteropelvic junction stone, 1 cm and urinary tract infection. PROCEDURE: Cystoscopy, right retrograde pyelogram, right double-J stent (6-Swiss 24 cm with a short internal string staged procedure). SURGEON: Pradeep Bradley MD ANESTHESIA: General. ESTIMATED BLOOD LOSS: Minimal. FLUIDS: Crystalloid. COMPLICATIONS: No complications. INDICATIONS: This patient is a 29-year-old female seen by Dr. Vázquez in the office with recurrent kidney stones. She had some pain and vomiting in the preoperative area. We discussed options. Written information was given. She understands she would get a stent ____. DESCRIPTION OF PROCEDURE: The patient was taken to the operative suite, placed in a supine position. After adequate general anesthesia, she was placed in a dorsal lithotomy position, prepped and draped in a sterile fashion. Pancystourethroscopy was performed with a 22-Swiss Storz cystoscope. No bladder pathology. Right retrograde pyelogram was obtained with an 8-Swiss Carmine catheter and 8 mL of contrast. The large stone could be appreciated at the UPJ and some hydronephrosis. A 0.035 Glidewire was placed. Danilo pus could be appreciated coming from the ureter. At this point, put up a 6-Swiss 24 cm double-J stent with a short string, elected to not proceed with lithotripsy at this point. She will go home on antibiotics and reevaluate. The bladder was drained. Urine culture was obtained. She was extubated and taken to recovery room in stable condition. She will go home on Cipro and [place] and follow up in the office. JOB# [id number] [facility]
--- NOTE | 2019-04-05 18:58 | Post Anesthesia Evaluation ---
- Post Anesthesia Evaluation Patient Participated: Yes Airway Patent: Yes Stable Respiratory Function: Yes Nausea/Vomiting: No Temp > 96.8F: Yes Pain Manageable: Yes Adequeate Hydration: Yes Anesthesia Complications: No Block Receding Appropriately: Not Applicable Patient on Ventilator: No
== END 2019-04-05 13:25 | disposition home or self-care (01) ==
LOC: OR 07:58
PROVIDERS: ATTEND Urology
DX: N13.2 Hydronephrosis with renal and ureteral calculous obstruction (principal); N39.0 Urinary tract infection, site not specified; Z79.899 Other long term (current) drug therapy; Z98.890 Other specified postprocedural states
CPT/HCPCS: 52332; 81025; 87086; C1758; C2617; J0330; J1885; J2405; J2704; J3010; J7030; J7120; Q9967

== ENCOUNTER 2019-04-13 10:00 | Day surgery (SDC) | payer BC ==
[2019-04-13] MEDS ORDERED: ONDANSETRON 4 MG/2 ML INJ IV PRN (11:25)
[2019-04-13] MEDS ORDERED: fentaNYL 100 MCG/2 ML INJ IV PRN (11:25)
[2019-04-13] MEDS ORDERED: HYDROmorphone 1 MG/1 ML INJ IV PRN (11:27)
--- NOTE | 2019-04-13 11:28 | Anesthesia Day of Surgery ---
Anesthesia Day of Surgery - Day of Surgery Patient Examined: Yes Patient H&P Reviewed: Yes Patient is NPO: Yes
--- NOTE | 2019-04-13 11:31 | Anesthesia Consultation ---
Anesthesia Consult and Med Hx Date of service: 04/13/19 - Airway Anesthetic Teeth Evaluation: Good ROM Head & Neck: Adequate Mental/Hyoid Distance: Adequate Mallampati Class: Class II Intubation Access Assessment: Probably Good - Pre-Operative Health Status ASA Pre-Surgery Classification: ASA2 Proposed Anesthetic Plan: General - Pulmonary Hx Smoking: No Hx Sleep Apnea: No (KERVIN PRE SCREEN LOW RISK) - Cardiovascular System Hx Hypertension: No - Central Nervous System Hx Back Pain: Yes (FROM KIDNEY STONE) - Other Systems Hx Cancer: No Hx Obesity: Yes
[2019-04-13] MEDS ORDERED: LACTATED RINGERS 1,000 ML IV SCH (12:00)
[2019-04-13] MEDS ORDERED: LIDOCAINE MPF (2%) 20 MG/1 ML VIAL 5 ML ONE (12:28)
[2019-04-13] MEDS ORDERED: PROPOFOL 200 MG/20 ML VIAL IV ONE ×2 (12:29→13:07)
[2019-04-13] MEDS ORDERED: ceFAZolin/STERILE WATER 2 GM/20 ML SYRINGE IV NR (12:30)
[2019-04-13] MEDS ORDERED: HYDROmorphone 1 MG/1 ML INJ ONE (12:53)
[2019-04-13] MEDS ORDERED: WATER FOR IRRIG STERILE 2000 ML IR ONE (12:59)
[2019-04-13] MEDS ORDERED: WATER FOR IRRIG STERILE 1,500 ML BOTTLE IR ONE (12:59)
[2019-04-13] MEDS ORDERED: dexAMETHasone 20 MG/5 ML VIAL ONE (13:04)
[2019-04-13] MEDS ORDERED: ONDANSETRON 4 MG/2 ML INJ ONE (13:04)
[2019-04-13] MEDS ORDERED: PHENYLEPHRINE/NS 1,000 MCG/10 ML SYRINGE (OR USE) IV ONE (13:40)
--- NOTE | 2019-04-13 13:40 | Short Stay Summary ---
Short Stay Documentation Date of service: 04/13/19 - History H&P: obtained from office - Allergies and Medications Current Medications: Allergies fentanyl Adverse Reaction (Verified 04/13/19 11:55) Vomiting Home Medications Medication Instructions Recorded Confirmed Last Taken Type Ciprofloxacin HCl [Ciprofloxacin 500 mg PO Q12HR #20 tab 03/28/19 04/13/19 04/13/19 09:00 Rx TAB] Tamsulosin [Flomax] 0.4 mg PO QDAY #10 cap 03/28/19 04/13/19 04/12/19 22:00 Rx HYDROcodone/APAP 5-325 [[place] 1 each PO Q6HR PRN 04/13/19 04/13/19 04/12/19 22:00 History 5/325] Active Medications Cefazolin Sodium (Ancef/Sterile Water 2 Gm/20 Ml) 2 gm IV PREOP NR Stop: 04/13/19 23:59 Hydromorphone HCl (Dilaudid) 0.5 mg IV Q10MIN PRN PRN Reason: Pain , Severe (7-10) Stop: 04/13/19 23:59 Lactated Ringer's (Lactated Ringers) 1,000 mls @ 125 mls/hr IV DIRECT NAILA Ondansetron HCl (Zofran) 4 mg IV ONCE PRN PRN Reason: Nausea And Vomiting - Brief post op/procedure progress note Date of procedure: 04/13/19 Pre-op diagnosis: rt ureteral stone, retained stent Procedure: cysto, rt rpg, ueteroscopy holium laser, basket stone, stent exchange with external string Anesthesia: HAILEY Surgeon: LUCAS BUSCH Pathology: none Condition: stable - Hospital course Hospital course: macrobid & norco - Disposition Condition at discharge: Stable Disposition: DC-01 TO HOME OR SELFCARE Short Stay Discharge Plan Follow up with: PRIMARY CARE,MD [Primary Care Provider] - 7 Days
--- NOTE | 2019-04-13 15:59 | Fluoroscopy Report ---
FLUOROSCOPY RETROGRADE UROGRAPHY HISTORY: Right ureteral stone FINDINGS: 8 seconds of fluoroscopy time was provided by radiology during retrograde urography by the urologist. The images demonstrate a filling defect in the distal right ureter consistent with a stone . The stone was removed with use of a laser and basket. The right ureteral stent was replaced. Please correlate with the procedural report as needed. IMPRESSION: Right ureteral stone removal. Right ureteral stent placement. Signer Name: Jakob Cade Jr, MD Signed: 04/13/2019 3:55 PM Workstation Name: [id number]
[2019-04-13 17:09] VITALS: BP 104/52
--- NOTE | 2019-04-13 17:42 | Operative Report ---
PREOPERATIVE DIAGNOSIS: Right ureteral stone, status post double-J stent with migration. POSTOPERATIVE DIAGNOSIS: Right ureteral stone, status post double-J stent with migration. PROCEDURE: Cystoscopy, right retrograde pyelogram, right ureteroscopy, holmium laser lithotripsy, basket stone extraction, double-J stent exchange (6-Somali, 24 cm with an external string. SURGEON: Pradeep Bradley MD ANESTHESIA: General. ESTIMATED BLOOD LOSS: Minimal. FLUIDS: Crystalloid. COMPLICATIONS: No complications. INDICATIONS: This is a 29-year-old female, who was recently scheduled for a cystoscopy, stent, and lithotripsy for a 1-cm stone on the right side, put up the stent. The patient had inez pus. The lithotripsy was canceled. She went home on antibiotics, was seen in the office with stent migration proximally and worsening pain, presents now for endoscopic evaluation. Risks, benefits, and complications were explained. DESCRIPTION OF PROCEDURE: The patient was taken to the operative suite, placed in a supine position. After adequate general anesthesia, placed in a dorsal lithotomy position, prepped and draped in a sterile fashion. Pancystourethroscopy was performed with a 22-Somali Storz cystoscope. No bladder pathology. Both ureteral orifices in normal position. The stent could not be seen in the bladder. A armature balancer film revealed that was more proximal in the ureter. Right retrograde pyelogram was obtained with an 8-Somali Humphreys catheter and 8 mL of contrast. Stent could be appreciated and possible filling defect in the distal ureter. A 0.035 Glidewire was placed. Rigid ureteroscopy was performed. The stent had a string. It was engaged and extracted. Ureteroscopy further up the mid ureter, obvious stone could be appreciated of 1 cm. Then, 200 micron holmium fiber was used starting at 4 [address] [place] going up to 8 [address]. Adequate fragmentation of the stone could be appreciated with the fragments were extracted with the Edith basket. Ureteroscopy to the renal pelvis, no other stones could be appreciated. A 6-Somali, 24-cm double-J stent with an external string was then placed. Fluoroscopy adequate position. The patient tolerated the procedure well. She was extubated and taken to recovery room in stable condition. She will go home on [employer] and [place]. We will give the patient stone, send the stone for analysis. She also needs Litholink because the patient has multiple stones, her mom has stones, as well as a grandmother. JOB# [id number] J[facility]/NTS
== END 2019-04-13 10:01 | disposition home or self-care (01) ==
LOC: OR 10:00
PROVIDERS: ATTEND Urology
DX: N20.1 Calculus of ureter (principal); E66.9 Obesity, unspecified; Z68.35 Body mass index [BMI] 35.0-35.9, adult; Z79.899 Other long term (current) drug therapy; Z87.440 Personal history of urinary (tract) infections; Z98.890 Other specified postprocedural states; Z88.8 Allergy status to other drugs, medicaments and biological substances
CPT/HCPCS: 52356; 74420; A4217; C1758; C1769; C2617; J1100; J1170; J2370; J2405; J2704; J7120; Q9967

== ENCOUNTER 2019-06-11 01:45 | Emergency (ER) | payer BC ==
[2019-06-11 03:04] LABS: Hematocrit 35.6 % (30.3-42.9); Hemoglobin 11.2 gm/dl (10.1-14.3); Mean Corpuscular HGB Conc 31 % (30-34); Mean Corpuscular Volume 74 fl (79-97); Platelet Count 472 K/mm3 (140-440); Red Blood Count 4.83 M/mm3 (3.65-5.03); Red Cell Distribution Width 18.8 % (13.2-15.2)
[2019-06-11 03:30] LABS: Alanine Aminotransferase 19 units/L (7-56); Albumin 4.4 g/dL (3.9-5); BUN/Creatinine Ratio 11; Blood Urea Nitrogen 8 mg/dL (7-17); Calcium 9.3 mg/dL (8.4-10.2); Hemolysis Index 2
[2019-06-11 03:37] LABS: Basophils % (Manual) 0 % (0.0-1.8); Eosinophils % (Manual) 0 % (0.0-4.3); Hypochromasia 1+; Total Cells Counted 100
[2019-06-11 03:52] LABS: Bacteria,Urine 1+ /HPF (Negative); Bilirubin,Urine NEG (Negative); Blood,Urine LG (Negative); Color,Urine Red (Yellow); Mucus,Urine FEW /HPF; Urobilinogen,Urine < 2.0 mg/dL (<2.0)
[2019-06-11 03:53] LABS: RBC,Urine > 182.0 /HPF (0.0-6.0); WBC,Urine > 182.0 /HPF (0.0-6.0)
[2019-06-11] MEDS ORDERED: cephALEXin 500 MG CAP PO ONE (04:42)
[2019-06-11] MEDS ORDERED: MAGNESIUM CITRATE 300 ML ORAL LIQD PO ONE (04:42)
[2019-06-11] MEDS ORDERED: ONDANSETRON 4 MG/2 ML INJ IV ONE (04:42)
[2019-06-11] MEDS ORDERED: KETOROLAC 30 MG/1 ML INJ IV ONE (04:42)
--- NOTE | 2019-06-11 05:43 | Cat Scan Report ---
CT ABDOMEN AND PELVIS WITH IV CONTRAST INDICATION: MAIN: ABDOMINAL PAIN/ RT FLANK PAIN. CONSTIPATION. 100 ML OMNIPAQUE 300. COMPARISON: 03/28/2019 TECHNIQUE: Axial CT images were obtained through the abdomen and pelvis after 100 mL IV contrast. All CT scans a t this location are performed using CT dose reduction for ALARA by means of automated exposure contro l. FINDINGS -- ABDOMEN: Lung Bases: No acute abnormality. Liver: Normal. Gallbladder: Normal. Bile Ducts: Normal. Pancreas: Normal. Spleen: Normal. Adrenals: Normal. Right Kidney and Proximal Ureter: Moderate right hydroureteronephrosis just slightly improved from th e prior exam on March 2019 however no obvious obstructive calculus is currently identified within the right ureter.. Left Kidney and Proximal Ureter: Nonobstructive stones. Stomach and Bowel: Normal. Lymph Nodes: No significant adenopathy. Aorta: No significant abnormality. IVC: Normal. Additional Findings: None. FINDINGS -- PELVIS: Urinary Bladder and Distal Ureters: Normal. Reproductive Organs: No acute abnormality. Appendix: Normal. Bowel: No acute abnormality. Free Fluid: None. Lymph Nodes: No significant adenopathy. Additional Findings: None. Skeletal System: No acute abnormality. Impression: Moderate right hydroureteronephrosis however no obstructive ureteral calculus is identifi ed within the right ureter. Underlying stricture is difficult to completely exclude. Has the patient recently passed a calculus Nonobstructive stones present within the left collecting system. Signer Name: Rivas Dodson MD Signed: 06/11/2019 5:38 AM Workstation Name: [email or web address]
--- NOTE | 2019-06-11 06:21 | Emergency Department Report ---
ED Abdominal Pain HPI - General Chief Complaint: Abdominal Pain Stated Complaint: BACK PAIN Source: patient Mode of arrival: Ambulatory Limitations: No Limitations - History of Present Illness Initial Comments: Patient is a 29-year-old -Vietnamese female with a history of kidney stones who presented to the ED with complaint of acute onset persistent dysuria, urinary frequency and urgency, intermittent nausea and vomiting, abdominal pain that radiates to the right flank for the last 5 days, worse in the last 2 days. Patient also states that she has not had a bowel movement in about 1 week despite eating normally. Patient denies fever, chills, vaginal bleeding, hemat ochezia, hematemesis, sore throat, chest pain, shortness of breath, hematuria or dizziness and syncope. MD Complaint: abdominal pain, flank pain (right flank), other (urinary frequency and urgency; constipation) -: Sudden, days(s) (3) Location: diffuse, R flank Radiation: R flank Migration to: no migration Severity scale (0 -10): 7 Quality: aching, sharp Consistency: constant Improves With: nothing Worsens With: nothing Associated Symptoms: denies other symptoms, nausea, constipation, dysuria. denies: vomiting, diarrhea, fever, chills, hematemesis, hematochezia, melena, hematuria, anorexia, syncope Treatments Prior to Arrival: NSAIDs - Related Data Home Medications Medication Instructions Recorded Confirmed Last Taken HYDROcodone/APAP 5-325 [[place] 1 each PO Q6HR PRN 04/13/19 04/13/19 04/12/19 22:00 5/325] Previous Rx's Medication Instructions Recorded Last Taken Type Ciprofloxacin HCl [Ciprofloxacin 500 mg PO Q12HR #20 tab 03/28/19 04/13/19 09:00 Rx TAB] Tamsulosin [Flomax] 0.4 mg PO QDAY #10 cap 03/28/19 04/12/19 22:00 Rx Dicyclomine [Bentyl] 20 mg PO Q6H PRN #24 tablet 06/11/19 Unknown Rx Ketorolac [Toradol] 10 mg PO Q8H PRN #20 tablet 06/11/19 Unknown Rx Magnesium Citrate 295 ml PO ONCE #3 solution 06/11/19 Unknown Rx Ondansetron [Zofran Odt] 4 mg PO Q6HR PRN #15 tab.rapdis 06/11/19 Unknown Rx cephALEXin [Keflex] 500 mg PO Q6HR #40 capsule 06/11/19 Unknown Rx Allergies Allergy/AdvReac Type Severity Reaction Status Date / Time fentanyl AdvReac Vomiting Verified 04/13/19 11:55 ED Review of Systems ROS: Stated complaint: BACK PAIN Other details as noted in HPI Constitutional: denies: chills, fever Eyes: denies: eye pain, eye discharge, vision change ENT: denies: ear pain, throat pain Respiratory: denies: cough, shortness of breath, wheezing Cardiovascular: denies: chest pain, palpitations Endocrine: no symptoms reported Gastrointestinal: abdominal pain, nausea, vomiting, constipation. denies: diarrhea Genitourinary: urgency, dysuria, frequency, other (right flank pain). denies: discharge Musculoskeletal: denies: back pain, joint swelling, arthralgia Skin: denies: rash, lesions Neurological: denies: headache, weakness, paresthesias Psychiatric: denies: anxiety, depression Hematological/Lymphatic: denies: easy bleeding, easy bruising ED Past Medical Hx - Past Medical History Previous Medical History?: Yes Hx Hypertension: No Hx Kidney Stones: Yes (Lithotripsy /2018) Hx HIV: No Additional medical history: Vaginal delivery X 2 - Surgical History Past Surgical History?: Yes Additional Surgical History: Back Surgery - Lower Back Lithotripsy Apr 2019 - Social History Smoking Status: Never Smoker - Medications Home Medications: Home Medications Medication Instructions Recorded Confirmed Last Taken Type Ciprofloxacin HCl [Ciprofloxacin 500 mg PO Q12HR #20 tab 03/28/19 04/13/19 04/13/19 09:00 Rx TAB] Tamsulosin [Flomax] 0.4 mg PO QDAY #10 cap 03/28/19 04/13/19 04/12/19 22:00 Rx HYDROcodone/APAP 5-325 [[place] 1 each PO Q6HR PRN 04/13/19 04/13/19 04/12/19 22:00 History 5/325] Dicyclomine [Bentyl] 20 mg PO Q6H PRN #24 tablet 06/11/19 Unknown Rx Ketorolac [Toradol] 10 mg PO Q8H PRN #20 tablet 06/11/19 Unknown Rx Magnesium Citrate 295 ml PO ONCE #3 solution 06/11/19 Unknown Rx Ondansetron [Zofran Odt] 4 mg PO Q6HR PRN #15 tab.rapdis 06/11/19 Unknown Rx cephALEXin [Keflex] 500 mg PO Q6HR #40 capsule 06/11/19 Unknown Rx ED Physical Exam - General Limitations: No Limitations General appearance: alert, in no apparent distress - Head Head exam: Present: atraumatic, normocephalic, normal inspection - Eye Eye exam: Present: normal appearance, PERRL, EOMI Pupils: Present: normal accommodation - ENT ENT exam: Present: normal exam, normal orophraynx, mucous membranes moist, TM's normal bilaterally, normal external ear exam - Neck Neck exam: Present: normal inspection, full ROM - Respiratory Respiratory exam: Present: normal lung sounds bilaterally. Absent: respiratory distress, wheezes, rhonchi, chest wall tenderness, accessory muscle use, decreased breath sounds - Cardiovascular Cardiovascular Exam: Present: regular rate, normal rhythm, normal heart sounds. Absent: systolic murmur, diastolic murmur, rubs, gallop - GI/Abdominal GI/Abdominal exam: Present: soft, tenderness (mildly diffuse abdominal tenderness, no guarding or rebound), normal bowel sounds. Absent: distended, guarding, rebound, hyperactive bowel sounds, hypoactive bowel sounds, organomegaly - Extremities Exam Extremities exam: Present: normal inspection, full ROM, normal capillary refill - Back Exam Back exam: Present: normal inspection, full ROM, CVA tenderness (R). Absent: tenderness, muscle spasm, paraspinal tenderness - Neurological Exam Neurological exam: Present: alert, oriented X3, CN II-XII intact, normal gait, reflexes normal - Psychiatric Psychiatric exam: Present: normal affect, normal mood - Skin Skin exam: Present: warm, dry, intact, normal color. Absent: rash ED Course Vital Signs 06/11/19 06/11/19 02:03 05:25 Temperature 98.4 F Pulse Rate 76 Respiratory 18 16 Rate Blood Pressure 136/77 O2 Sat by Pulse 97 Oximetry ED Medical Decision Making - Lab Data Result diagrams: 06/11/19 02:43 06/11/19 02:43 - Radiology Data Radiology results: report reviewed, image reviewed Findings [facility] [address] [place] [address] Cat Scan Report Signed Patient: NATALIYA MAGANA MR#: [id number] : 1990 Acct:[id number] Age/Sex: 29 / F ADM Date: 06/11/19 Loc: ED Attending Dr: Ordering Physician: TERRY TOLLIVER Date of Service: 06/11/19 Procedure(s): CT abdomen pelvis w con Accession Number(s): [id number] cc: TERRY TOLLIVER CT ABDOMEN AND PELVIS WITH IV CONTRAST INDICATION: MAIN: ABDOMINAL PAIN/ RT FLANK PAIN. CONSTIPATION. 100 ML OMNIPAQUE 300. COMPARISON: 03/28/2019 TECHNIQUE: Axial CT images were obtained through the abdomen and pelvis after 100 mL IV contrast. All CT scans at this location are performed using CT dose reduction for ALARA by means of automated exposure control. FINDINGS -- ABDOMEN: Lung Bases: No acute abnormality. Liver: Normal. Gallbladder: Normal. Bile Ducts: Normal. Pancreas: Normal. Spleen: Normal. Adrenals: Normal. Right Kidney and Proximal Ureter: Moderate right hydroureteronephrosis just slightly improved from the prior exam on March 2019 however no obvious obstructive calculus is currently identified within the right ureter.. Left Kidney and Proximal Ureter: Nonobstructive stones. Stomach and Bowel: Normal. Lymph Nodes: No significant adenopathy. Aorta: No significant abnormality. IVC: Normal. Additional Findings: None. FINDINGS -- PELVIS: Urinary Bladder and Distal Ureters: Normal. Reproductive Organs: No acute abnormality. Appendix: Normal. Bowel: No acute abnormality. Free Fluid: None. Lymph Nodes: No significant adenopathy. Additional Findings: None. Skeletal System: No acute abnormality. Impression: Moderate right hydroureteronephrosis however no obstructive ureteral calculus is identified within the right ureter. Underlying stricture is difficult to completely exclude. Has the patient recently passed a calculus Nonobstructive stones present within the left collecting system. Signer Name: Rivas Dodson MD Signed: 06/11/2019 5:38 AM Workstation Name: [id number] Transcribed By: Dictated By: Rivas Dodson MD Electronically Authenticated By: Rivas Dodson MD Signed Date/Time: 06/11/19 0538 DD/ 0536 - Medical Decision Making This is a 29-year-old -Vietnamese female who presented to the ED with right flank pain and diffuse abdominal pain with nausea and vomiting for 5 days, worse in the last 2 days. Patient also states that she has not had a bowel movement in 1 week. In the ED, patient is alert and oriented 3 and is not in distress. Lab test results were reviewed and showed acute leukocytosis of 11,90 0 and significant urinary tract infection and urinalysis. Patient was treated in the ED for pain, nausea and vomiting and also given oral antibiotics in the ED. Abdomen pelvis CT scan with contrast shows moderate right hydroureteronephrosis however no obstructive ureteral calculus is identified wi thin the right ureter. Underlying stricture is difficult to completely exclude. Has the patient recently passed a calculus nonobstructive stones present within the left collecting system. On reevaluation, patient felt better, and fell asleep in the ED laying on the bed. Patient was discharged home on antibiotics and pain medications as well as laxatives and advised to follow-up with her primary care physician in 3-5 days for reevaluation or return to the ED immediately if symptoms get worse. - Differential Diagnosis abdominal pain; kidney stones; UTI; SBO; Dehydration; Ovarian cysts Critical care attestation.: If time is entered above; I have spent that time in minutes in the direct care of this critically ill patient, excluding procedure time. ED Disposition Clinical Impression: Acute urinary tract infection, Nausea and vomiting in adult Abdominal pain Qualifiers: Abdominal location: generalized Qualified Code(s): R10.84 - Generalized abdominal pain Constipation Qualifiers: Constipation type: other constipation type Qualified Code(s): K59.09 - Other constipation Disposition: DC-01 TO HOME OR SELFCARE Is pt being admited?: No Does the pt Need Aspirin: No Condition: Stable Instructions: Abdominal Pain (ED), Constipation (ED), Urinary Tract Infection in Women (ED) Additional Instructions: Take medication with food, drink plenty of fluids and follow-up with your primary care physician in 5-7 days for reevaluation. Return to the ED immediately if symptoms get worse. Prescriptions: Dicyclomine [Bentyl] 20 mg PO Q6H PRN #24 tablet PRN Reason: Pain , Severe (7-10) cephALEXin [Keflex] 500 mg PO Q6HR #40 capsule Magnesium Citrate 295 ml PO ONCE #3 solution Ketorolac [Toradol] 10 mg PO Q8H PRN #20 tablet PRN Reason: Pain Ondansetron [Zofran Odt] 4 mg PO Q6HR PRN #15 tab.rapdis PRN Reason: Nausea Referrals: PRIMARY CARE,MD [Primary Care Provider] - 3-5 Days Forms: Work/School Release Form(ED) Time of Disposition: 06:28 Print Language: SIER[place] LEONEAN
[2019-06-11 06:52] VITALS: BP 107/67
== END 2019-06-11 06:45 | disposition home or self-care (01) ==
LOC: ED 01:45
DX: N39.0 Urinary tract infection, site not specified (principal); K59.09 Other constipation
CPT/HCPCS: 36415; 74177; 80053; 81001; 83690; 84703; 85007; 85025; 96374; 96375; 99284; J1885; J2405; Q9967

== ENCOUNTER 2019-08-10 10:27 | Emergency (ER) | payer BC ==
[2019-08-10 10:52] VITALS: BP 122/72
[2019-08-10] MEDS ORDERED: ACETAMINOPHEN 325 MG TAB PO ONE (10:55)
[2019-08-10] MEDS ORDERED: ACETAMINOPHEN 325 MG TAB ONE (10:57)
--- NOTE | 2019-08-10 14:39 | Emergency Department Report ---
HPI - General Chief Complaint: Upper Respiratory Infection Time Seen by Provider: 08/10/19 14:18 - HPI HPI: Room 34 The patient is a 29-year-old female presenting with a chief complaint of body aches cough and fever. The patient states his symptoms began last night with subjective fever and sore throat. The patient states today she began feeling weak and had a cough has been nonproductive in addition to a headache body aches and rhinorrhea. Location: [See above] Duration: [See above] Quality: [See above] Severity: [See above] Timing: [See above] Context: [See above] Modifying factors: [See above] Associated signs and symptoms: [see above] ED Past Medical Hx - Past Medical History Hx Kidney Stones: Yes (Lithotripsy /2018) Additional medical history: Vaginal delivery X 2 - Surgical History Additional Surgical History: Back Surgery - Lower Back Lithotripsy Apr 2019 - Family History Family history: no significant - Social History Smoking Status: Never Smoker Substance Use Type: None - Medications Home Medications: Home Medications Medication Instructions Recorded Confirmed Last Taken Type Ciprofloxacin HCl [Ciprofloxacin 500 mg PO Q12HR #20 tab 03/28/19 04/13/19 04/13/19 09:00 Rx TAB] Tamsulosin [Flomax] 0.4 mg PO QDAY #10 cap 03/28/19 04/13/19 04/12/19 22:00 Rx HYDROcodone/APAP 5-325 [[place] 1 each PO Q6HR PRN 04/13/19 04/13/19 04/12/19 22:00 History 5/325] Dicyclomine [Bentyl] 20 mg PO Q6H PRN #24 tablet 06/11/19 Unknown Rx Ketorolac [Toradol] 10 mg PO Q8H PRN #20 tablet 06/11/19 Unknown Rx Magnesium Citrate 295 ml PO ONCE #3 solution 06/11/19 Unknown Rx Ondansetron [Zofran Odt] 4 mg PO Q6HR PRN #15 tab.rapdis 06/11/19 Unknown Rx cephALEXin [Keflex] 500 mg PO Q6HR #40 capsule 06/11/19 Unknown Rx Benzonatate [Tessalon Perles] 100 mg PO Q8HR #30 capsule 08/10/19 Unknown Rx HYDROcodone/APAP 5-325 [[place] 1 each PO Q6HR PRN #10 tablet 08/10/19 Unknown Rx 5/325] Ibuprofen [Motrin 800 MG tab] 800 mg PO Q8HR PRN #20 tablet 08/10/19 Unknown Rx Oseltamivir [Tamiflu] 75 mg PO BID #10 cap 08/10/19 Unknown Rx Oxymetazoline 0.05% [Vicks Sinex] 1 - 2 spray NS Q12H PRN #1 bottle 08/10/19 Unknown Rx ED Review of Systems ROS: Stated complaint: COUGH/HEADAHCE/BODY ACHE Other details as noted in HPI Constitutional: fever (subjective) Eyes: denies: eye pain ENT: throat pain Respiratory: cough Cardiovascular: denies: chest pain Endocrine: no symptoms reported Gastrointestinal: denies: abdominal pain Musculoskeletal: myalgia Neurological: headache Physical Exam - Physical Exam Vital Signs: Vital Signs 08/10/19 10:46 Temperature 101.1 F H Pulse Rate 118 H Respiratory 20 Rate Blood Pressure 122/72 O2 Sat by Pulse 97 Oximetry Physical Exam: GENERAL: The patient is well-developed well-nourished female lying on stretcher appearing to be in mild discomfort but in no acute distress. [] HEENT: Normocephalic. Atraumatic. Extraocular motions are intact. Patient has moist mucous membranes. Oropharynx clear NECK: Supple. No meningitic signs are noted. Trachea midline CHEST/LUNGS: Clear to auscultation. There is no respiratory distress noted. HEART/CARDIOVASCULAR: Regular. There is no tachycardia. There is no gallop rub or murmur. ABDOMEN: Abdomen is soft, nontender. Patient has normal bowel sounds. There is no abdominal distention. SKIN: There is no rash. There is no edema. There is no diaphoresis. NEURO: The patient is awake, alert, and oriented. The patient is cooperative. The patient has normal speech MUSCULOSKELETAL: There is no evidence of acute injury. ED Course Vital Signs 08/10/19 10:46 Temperature 101.1 F H Pulse Rate 118 H Respiratory 20 Rate Blood Pressure 122/72 O2 Sat by Pulse 97 Oximetry ED Medical Decision Making - Lab Data Laboratory Tests 08/10/19 14:30 Influenza A (Rapid) Positive A Influenza B (Rapid) Negative - Radiology Data Radiology results: report reviewed (chest x-ray), image reviewed (chest x-ray) interpreted by me: Chest x-ray-no definite infiltrates. No pneumothorax [facility] [address] [place] [address] XRay Report Signed Patient: NATALIYA MAGANA MR#: [id number] : 1990 Acct:[id number] Age/Sex: 29 / F ADM Date: 08/10/19 Loc: ED Attending Dr: Ordering Physician: FRANCOIS MANN MD Date of Service: 08/10/19 Procedure(s): XR chest routine 2V Accession Number(s): [id number] cc: FRANCOIS MANN MD Fluoro Time In Minutes: CHEST 2 VIEWS INDICATION / CLINICAL INFORMATION: cough, body aches. COMPARISON: None available. FINDINGS: SUPPORT DEVICES: None. HEART / MEDIASTINUM: No significant abnormality. LUNGS / PLEURA: There is focal parenchymal opacity in the posterior right lower lobe. No pneumothorax. ADDITIONAL FINDINGS: No significant additional findings. IMPRESSION: 1. Focal right lower lobe opacity probably representing pneumonia given the provided history. Signer Name: Sunny Martinez MD Signed: 08/10/2019 2:55 PM Workstation Name: [id number] Transcribed By: GIANCARLO Dictated By: Sunny Martinez MD Electronically Authenticated By: Sunny Martinez MD Signed Date/Time: 08/10/191454 DD/ 52 TD/TT: - Differential Diagnosis influenza, pneumonia, bronchitis Critical care attestation.: If time is entered above; I have spent that time in minutes in the direct care of this critically ill patient, excluding procedure time. ED Disposition Clinical Impression: Influenza A Disposition: DC-01 TO HOME OR SELFCARE Is pt being admited?: No Does the pt Need Aspirin: No Condition: Stable Instructions: Influenza (ED) Additional Instructions: Return to the emergency department should you develop worsening symptoms, inability to tolerate food or liquids, high fever or any other concerns Prescriptions: Ibuprofen [Motrin 800 MG tab] 800 mg PO Q8HR PRN #20 tablet PRN Reason: Pain, Moderate (4-6) HYDROcodone/APAP 5-325 [[place] 5/325] 1 each PO Q6HR PRN #10 tablet PRN Reason: Pain Oseltamivir [Tamiflu] 75 mg PO BID #10 cap Benzonatate [Tessalon Perles] 100 mg PO Q8HR #30 capsule Oxymetazoline 0.05% [Vicks Sinex] 1 - 2 spray NS Q12H PRN #1 bottle PRN Reason: Nasal Congestion Referrals: RAMIN VARGAS MD [Staff Physician] - 3-5 Days Time of Disposition: 16:20
--- NOTE | 2019-08-10 14:59 | XRay Report ---
CHEST 2 VIEWS INDICATION / CLINICAL INFORMATION: cough, body aches. COMPARISON: None available. FINDINGS: SUPPORT DEVICES: None. HEART / MEDIASTINUM: No significant abnormality. LUNGS / PLEURA: There is focal parenchymal opacity in the posterior right lower lobe. No pneumothorax . ADDITIONAL FINDINGS: No significant additional findings. IMPRESSION: 1. Focal right lower lobe opacity probably representing pneumonia given the provided history. Signer Name: Sunny Martinez MD Signed: 08/10/2019 2:55 PM Workstation Name: [id number]
[2019-08-10] MEDS ORDERED: SODIUM CHLORIDE 0.9% 1000 ML 1,000 ML IV ONE (15:23)
== END 2019-08-10 17:53 | disposition home or self-care (01) ==
LOC: ED 10:27
DX: J10.1 Influenza due to other identified influenza virus with other respiratory manifestations (principal); Z88.8 Allergy status to other drugs, medicaments and biological substances; Z79.899 Other long term (current) drug therapy; Z98.890 Other specified postprocedural states; Z87.442 Personal history of urinary calculi
CPT/HCPCS: 71046; 87400

== ENCOUNTER 2020-12-31 07:52 | Emergency (ER) | payer BC ==
--- NOTE | 2020-12-31 09:50 | Emergency Department Report ---
ED General Adult HPI - General Chief complaint: Extremity Injury, Lower Stated complaint: RT FOOT/ANKLE PAIN Time Seen by Provider: 12/31/20 09:24 Source: patient Mode of arrival: Ambulatory Limitations: No Limitations - History of Present Illness Initial comments: 30-year-old female patient presents to emergency department with complaints of right foot and right ankle pain for 3 days. No preceding fall, trauma, or injury. No history of prior injuries to the right foot/right ankle. Patient recently began wearing a new pair of shoes about 30 days ago. Pain is poorly localized. She does not take steroids. No recent antibiotic use. No medications prior to arrival. Denies fever, chills, calf pain, lower extremity swelling, paresthesias, numbness, weakness. Denies all other complaints at this time. - Related Data Previous Rx's Medication Instructions Recorded Last Taken Type Ondansetron [Zofran Odt] 4 mg PO Q8HR PRN #10 tab.rapdis 12/25/19 01/16/20 Rx Naproxen 500 mg PO BID #20 tablet 12/31/20 Unknown Rx Allergies Allergy/AdvReac Type Severity Reaction Status Date / Time fentanyl AdvReac Vomiting Verified 08/10/19 10:28 ED Review of Systems ROS: Stated complaint: RT FOOT/ANKLE PAIN Other details as noted in HPI Other: GENERAL: Negative for fever. CARDIOVASCULAR: Negative for chest pain. PULMONARY: Negative for shortness of breath. GASTROINTESTINAL: Negative for abdominal pain. MUSCULOSKELETAL: Positive for foot pain and ankle pain. NEUROLOGICAL: Negative for headache. INTEGUMENTARY: Negative for rash. ED Past Medical Hx - Past Medical History Previous Medical History?: Yes Hx Hypertension: No Hx Heart Attack/AMI: No Hx Liver Disease: No Hx Renal Disease: No Hx Kidney Stones: Yes Hx HIV: No Additional medical history: Vaginal delivery X 2 - Surgical History Past Surgical History?: Yes Additional Surgical History: Back Surgery - Lower Back Lithotripsy Apr 2019 - Social History Smoking Status: Never Smoker - Medications Home Medications: Home Medications Medication Instructions Recorded Confirmed Last Taken Type Ondansetron [Zofran Odt] 4 mg PO Q8HR PRN #10 tab.rapdis 12/25/19 01/21/20 01/16/20 Rx Naproxen 500 mg PO BID #20 tablet 12/31/20 Unknown Rx ED Physical Exam - General Limitations: No Limitations - Other Other exam information: General: Awake, appropriately interactive, no acute distress. Neck: Supple. Full range of motion intact. Cardiovascular: Normal peripheral perfusion. Pulmonary: No respiratory distress. Patient is speaking normally without use of accessory muscles. Skin: No apparent rashes or lesions. Neurological: No facial asymmetry. Speech is clear. Follows commands. Patient is alert and oriented. Musculoskeletal: Patient reports diffuse pain throughout the ankle and foot without localized tenderness. No soft tissue swelling. No obvious deformity or dislocation. Patient is bearing weight without difficulty. Full range of motion intact. No plantar ecchymosis. Agarwal test negative. Distal neurovascular and motor/sensory function intact. Psych: Cooperative. Appropriate mood and affect. ED Course Vital Signs 12/31/20 08:21 Temperature 98.0 F Pulse Rate 77 Respiratory 16 Rate Blood Pressure 120/65 O2 Sat by Pulse 98 Oximetry ED Medical Decision Making - Medical Decision Making Differential diagnosis including but not limited to: sprain, strain, fracture, contusion, dislocation, plantar fasciitis Patient presents to the emergency department with complaints of nontraumatic, poorly localized right foot/ankle pain a few weeks after switching to a new pair of shoes. Pain is worse with weightbearing. She is afebrile, hemodynamically stable, neurovascularly intact, ambulatory without assistance. There is no localized bony tenderness on exam. Patient has no known pre-existing bone density issues. There is no clinical indication for emergent imaging. Patient will be discharged home with Mark wrap, NSAIDs, and referral to primary care provider for close outpatient follow-up. Patient expressed understanding and is agreeable to plan of care. RICE precautions discussed. Strict return precautions provided. History, exam, diagnostic testing, and current condition do not suggest worrisome pathology to warrant further testing, continued ED treatment, admission, or surgical evaluation at this point. Given the low probability of a significant medical illness, it would be more likely to result in harm than benefit to perform further testing at this stage. Discussed findings, presumptive diagnosis, need for follow-up and specific signs/symptoms that should prompt immediate return to the emergency department. Instructions were explained in detail to the patient in addition to giving written discharge information. Patient expressed understanding and was given the opportunity to ask questions, all of which were satisfactorily answered prior to discharge home. Critical care attestation.: If time is entered above; I have spent that time in minutes in the direct care of this critically ill patient, excluding procedure time. ED Disposition Clinical Impression: Right ankle pain Qualifiers: Chronicity: acute Qualified Code(s): M25.571 - Pain in right ankle and joints of right foot Disposition: - TO HOME OR SELFCARE Is pt being admited?: No Does the pt Need Aspirin: No Condition: Stable Instructions: Ankle Pain Additional Instructions: Take Tylenol every 4 hours as needed for pain. Take Naprosyn twice daily with food as needed for pain. Wear Mark wrap as directed. Keep right ankle/foot elevated as often as possible to reduce swelling. Wear shoes with adequate arch support. Follow-up with primary care provider this week. Call today to schedule an appointment. See referral information below. Return to the emergency department immediately for new or worsening symptoms. Prescriptions: Naproxen 500 mg PO BID #20 tablet Referrals: JERRELL PAINTER MD [Staff Physician] - 3-5 Days [facility] [Outside] - 3-5 Days [facility] [Outside] - 3-[address] [facility] [Outside] - 3-5 Days [facility] [Provider Group] - 3-5 Days Forms: Work/School Release Form(ED) Time of Disposition: 09:50
== END 2020-12-31 10:29 | disposition home or self-care (01) ==
LOC: ED 07:52
CPT/HCPCS: 99281